=== PATIENT | female | born 1960 | race Caucasian/White ===

== ENCOUNTER 2018-04-29 06:02 | Day surgery (SDC) | payer OTHER ==
[~2018-04-29] VITALS: Ht 162.6 cm; Wt 75.0 kg
[2018-04-29 07:17] VITALS: Ht 162.6 cm; Wt 75.0 kg
[2018-04-29] MEDS ORDERED: VITAMIN D (07:22)
[2018-04-29] MEDS ORDERED: OMEGA 3 (07:22)
[2018-04-29] MEDS ORDERED: ATORVASTATIN (07:22)
[2018-04-29] MEDS ORDERED: LEVOTHYROXINE (07:22)
[2018-04-29 07:32] VITALS: BP 124/73; PULSE 63; RESP 16
[2018-04-29] MEDS ORDERED: MIDAZOLAM 1 MG/ML 2 ML INJ ONE ×2 (08:28)
[2018-04-29] MEDS ORDERED: FENTAnyl 50 MCG/ML VIAL ONE (08:28)
== END 2018-04-29 12:32 | disposition home or self-care (01) ==
LOC: GIL 06:02
PROVIDERS: ATTEND Internal Medicine Gastroenterology
DX: Z12.11 Encounter for screening for malignant neoplasm of colon (principal); D12.5 Benign neoplasm of sigmoid colon; K29.50 Unspecified chronic gastritis without bleeding; K64.8 Other hemorrhoids; K64.4 Residual hemorrhoidal skin tags; K21.9 Gastro-esophageal reflux disease without esophagitis
CPT/HCPCS: 43239; 45380; 84703; 88305; 88312; J2250; J3010; Z7610